=== PATIENT | female | born 1960 | race Two or more races ===

== ENCOUNTER 2018-06-19 18:23 | Emergency (ER) | payer OTHER ==
--- NOTE | 2018-06-19 18:35 | EDPHY ---
H & P Stated Complaint: chronic r knee pain /?arthritis worse last 3 days Time Seen by Provider: 06/19/18 18:34 HPI/ROS: CHIEF COMPLAINT: Worsening right knee and calf pain HISTORY OF PRESENT ILLNESS: The patient presents the ED with complaints of worsening right knee and calf pain. She is currently walking with an antalgic gait. She complains of pain primarily in the knee but also on the right calf with some radiation down to the ankle. Patient denies any lower extremity paresthesias. She did see a specialist in [place] and had a arthrocentesis performed of the right knee in the past in the setting of a knee effusion. The patient denies any fever. She does have a history of diabetes. Her primary care provider prescribed meloxicam which is not improved her symptoms. She reports she typically responds better to 2 Tylenol tablets. REVIEW OF SYSTEMS: A comprehensive 10 point review of systems is otherwise negative aside from elements mentioned in the history of present illness. Source: Patient, Family, Insulation Applicator - Personal History Current Tetanus Diphtheria and Acellular Pertussis (TDAP): Yes - Medical/Surgical History Hx Asthma: No Hx Chronic Respiratory Disease: No Hx Diabetes: Yes Hx Cardiac Disease: No Hx Renal Disease: No Hx Cirrhosis: No Hx Alcoholism: No Hx HIV/AIDS: No Hx Splenectomy or Spleen Trauma: No Other PMH: htn diab arthritis - Social History Smoking Status: Never smoked - Physical Exam Exam: General Appearance: Thin female, Eyes: Pupils equal and round no pallor or injection ENT, Mouth: Mucous membranes moist Respiratory: There are no retractions, lungs are clear to auscultation Cardiovascular: Regular rate and rhythm Gastrointestinal: Abdomen is soft and nontender, no masses, bowel sounds normal Neurological: 5/5 strength all 4 extremities, normal motor sensory exam noted bilateral lower extremities Skin: Warm and dry, no rashes Musculoskeletal: Neck is supple nontender Extremities: Tenderness to palpation around the right knee joint, no appreciable effusion. Right calf tenderness without asymmetry noted. 2+ dorsalis pedis and posterior tibial pulses present Constitutional: Initial Vital Signs Temperature (C) 36.7 C 06/19/18 18:27 Heart Rate 80 06/19/18 18:27 Respiratory Rate 17 06/19/18 18:27 Blood Pressure 168/87 H 06/19/18 18:27 O2 Sat (%) 96 06/19/18 18:27 O2 Delivery Mode Room Air Allergies/Adverse Reactions: No Known Allergies Allergy (Unverified 06/19/18 18:26) Home Medications: Medication Instructions Recorded Atorvastatin Calcium 06/19/18 Losartan Potassium 06/19/18 Meloxicam 06/19/18 Metformin 1000 mg 06/19/18 oxyCODONE IR [Oxycodone Ir (*)] 5 mg PO Q6 PRN #20 tab 06/19/18 Medical Decision Making - Diagnostics Imaging Results: Imaging Impressions Knee X-Ray 06/19/18 18:45 Impression: Moderate to severe osteoarthritis. Small effusion. Extremity Venous Study 06/19/18 18:46 Impression: Negative. No deep venous thrombosis. Findings discussed with Emergency Department physician, James Rawls M.D. , on June 19, 2018 at 1940. ED Course/Re-evaluation: The patient presents to the ED with complaints of acutely worsening chronic right knee pain and right calf pain. The patient had no clinical evidence of DVT noted on exam. The patient did have an ultrasound which demonstrates no evidence of a DVT or Sims cyst. X-rays do confirm fairly significant osteoarthritis. The patient did receive any intra-articular injection of Marcaine performed by myself in the ED. The patient will continue taking Tylenol and anti-inflammatories. She has been given a prescription for oxycodone for more severe pain. Patient will be referred to our on-call orthopedic surgeon Dr. Gomez for further evaluation and management. Differential Diagnosis: Differential diagnosis considered includes DVT, Sims cyst, osteoarthritis, septic arthritis Departure - Departure Disposition: Home, Routine, Self-Care Clinical Impression: Right knee pain Qualifiers: Chronicity: acute Qualified Code(s): M25.561 - Pain in right knee Osteoarthritis Qualifiers: Osteoarthritis location: knee Osteoarthritis type: primary Laterality: right Qualified Code(s): M17.11 - Unilateral primary osteoarthritis, right knee Condition: Good Instructions: Osteoarthritis (ED) Additional Instructions: 1. Continue Tylenol and meloxicam as prescribed by your primary care provider. 2. Oxycodone as needed for more severe pain. 3. Please follow up with the family specialist you have been referred to for further evaluation of your knee pain. Referrals: Cecil Gomez MD [Medical Doctor] - As per Instructions
[2018-06-19 20:32] VITALS: BP 155/85
== END 2018-06-19 20:32 | disposition home or self-care (01) ==
DX: M25.561 Pain in right knee (principal); M17.11 Unilateral primary osteoarthritis, right knee; E11.9 Type 2 diabetes mellitus without complications; Z79.899 Other long term (current) drug therapy; I10 Essential (primary) hypertension